=== PATIENT | female | born 1940 | race Two or more races ===

== ENCOUNTER 2020-11-12 08:56 | Outpatient (CLI) | payer OTHER | END 2020-11-12 08:58 | disposition home or self-care (01) | LOC: NUCLEAR 08:56 | PROVIDERS: ATTEND Family Medicine | DX: I73.9 Peripheral vascular disease, unspecified (principal); R60.9 Edema, unspecified; I87.2 Venous insufficiency (chronic) (peripheral) ==

== ENCOUNTER → 2020-11-13 | Outpatient (CLI) | payer OTHER | END | disposition home or self-care (01) | LOC: NUCLEAR 08:43 | PROVIDERS: ATTEND Family Medicine | DX: I73.9 Peripheral vascular disease, unspecified (principal); R60.9 Edema, unspecified; I87.2 Venous insufficiency (chronic) (peripheral) ==

== ENCOUNTER 2021-07-27 08:51 | Outpatient (CLI) | payer OTHER | END 2021-07-27 09:01 | disposition home or self-care (01) | LOC: NUCLEAR 08:51 | PROVIDERS: ATTEND Family Medicine | DX: M79.604 Pain in right leg (principal); M79.662 Pain in left lower leg ==

== ENCOUNTER 2021-07-27 09:47 | Outpatient (CLI) | payer OTHER | END 2021-07-27 10:06 | disposition home or self-care (01) | LOC: SONOGRAMA 09:47 | DX: N28.1 Cyst of kidney, acquired (principal) ==

== ENCOUNTER 2022-02-14 09:06 | Outpatient (CLI) | payer OTHER | END 2022-02-14 09:09 | disposition home or self-care (01) | LOC: RAD 09:06 | PROVIDERS: ATTEND Family Medicine | DX: M54.2 Cervicalgia (principal) ==

== ENCOUNTER → 2022-10-04 | Outpatient (CLI) | payer OTHER | END | disposition home or self-care (01) | LOC: RAD 11:40 | PROVIDERS: ATTEND Family Medicine | DX: M77.41 Metatarsalgia, right foot (principal); M77.42 Metatarsalgia, left foot ==

== ENCOUNTER 2022-12-13 11:46 | Outpatient (CLI) | payer OTHER | END 2022-12-13 12:08 | disposition home or self-care (01) | LOC: RAD 11:46 | PROVIDERS: ATTEND Family Medicine | DX: R05.2 Subacute cough (principal) ==

== ENCOUNTER 2022-12-26 08:41 | Outpatient (CLI) | payer OTHER | END 2022-12-26 08:49 | disposition home or self-care (01) | LOC: SONOGRAMA 08:41 | PROVIDERS: ATTEND Family Medicine | DX: M79.621 Pain in right upper arm (principal) ==

== ENCOUNTER 2025-05-15 08:08 | Outpatient (CLI) | payer OTHER | END 2025-05-15 08:11 | disposition home or self-care (01) | LOC: TOM 08:08 | PROVIDERS: ATTEND Family Medicine | DX: K57.90 Diverticulosis of intestine, part unspecified, without perforation or abscess without bleeding (principal); R10.30 Lower abdominal pain, unspecified; N18.30 Chronic kidney disease, stage 3 unspecified | CPT/HCPCS: 74178; Q9965 ==